=== PATIENT | female | born 2000 | race Caucasian/White ===

== ENCOUNTER 2024-06-08 04:52 | Inpatient (IN) | payer BC ==
[2024-06-08 07:47] VITALS: BMI 34.4
[2024-06-08] MEDS ORDERED: ABX IVPB PRN (07:47)
[2024-06-08] MEDS ORDERED: VANCO IVPB PRN (07:47)
[2024-06-08] MEDS: Vancomycin (BATCH) 2 GM in Premix 1 BAG IVPB SCH (08:00)
[2024-06-08 08:17] LABS: #Basophils Less than 0.03 10x3/uL (0.0-0.2); %Basophils 0.1 % (0.0-1.0); %Eosinophils 0.7 % (0.0-10.0); %Lymphocytes 13.4 % (21.0-51.0); %Monocytes 9.1 % (0.0-10.0); %Neutrophils 76.1 % (42.0-75.0); Hematocrit 38.4 % (36.0-47.0); Hemoglobin 13.2 g/dL (12.0-16.0); Mean Corpuscular HGB CONC 34.4 g/dL (32.0-36.0); Mean Corpuscular Volume 87.3 fL (78.0-98.0); Mean Platelet Volume 9.8 fL (7.4-10.4); Platelet Count 333 10x3/uL (130-400); RBC Distribution Width 11.4 % (11.5-14.5)
[2024-06-08] MEDS: Morphine 4 MG/ML VIAL SLOW IVP SCH (08:31)
[2024-06-08] MEDS ORDERED: Vancomycin 1 GM in Sodium Chloride 0.9% 250 ML 300 ML IVPB SCH (09:00)
[2024-06-08] MEDS: Piperacillin/Tazobactam 3.375 GM in Sodium Chloride 0.9% 100 ML IVPB SCH ×2 (09:18→15:03)
[2024-06-08] MEDS: Famotidine 20 MG TAB PO SCH (09:18)
[2024-06-08] MEDS: Piperacillin/Tazobactam 3.375 GM VIAL ONE (09:28)
[2024-06-08] MEDS ORDERED: Lidocaine 1% PF 5 ML VIAL ONE (11:40)
[2024-06-08] MEDS ORDERED: Rocuronium Bromide 10 MG/ML (10ML VIAL) ONE (11:40)
[2024-06-08] MEDS ORDERED: PROPOFOL 20 ML ONE (11:41)
[2024-06-08] MEDS ORDERED: fentaNYL PF 100 MCG/2 ML SYRINGE ONE (11:41)
[2024-06-08] MEDS ORDERED: Midazolam HCl 2 mg/2 ml Vial ONE (11:41)
[2024-06-08] MEDS ORDERED: Ketamine In 0.9 % NaCl 50 MG/5 ML SYRINGE ONE (11:46)
[2024-06-08] MEDS ORDERED: Ondansetron PF 4 MG/2 ML Vial ONE (12:14)
[2024-06-08] MEDS ORDERED: Dexamethasone 4 mg/ml Vial ONE (12:14)
[2024-06-08] MEDS ORDERED: SUGAMMADEX SODIUM 200 MG/2 ML VIAL ONE (12:14)
[2024-06-08] MEDS ORDERED: Fentanyl 250 MCG/5 ML VIAL ONE (13:30)
[2024-06-08] MEDS ORDERED: Meperidine HCl/PF 25 MG (1 mL) VIAL ONE (13:48)
[2024-06-08] MEDS: Morphine 4 MG/ML VIAL SLOW IVP PRN (15:02)
[2024-06-08] MEDS: Ketorolac Tromethamine 30 MG (1 mL) VIAL IVP PRN (18:16)
[2024-06-08] MEDS: Vancomycin 1 GM in Premix 1 BAG IVPB SCH (20:56)
[2024-06-09] MEDS: Ondansetron ODT 4 MG TAB PO PRN (01:11)
[2024-06-09 05:55] LABS: #Basophils Less than 0.03 10x3/uL (0.0-0.2); %Basophils 0.2 % (0.0-1.0); %Eosinophils 0.4 % (0.0-10.0); %Lymphocytes 16.9 % (21.0-51.0); %Monocytes 9.4 % (0.0-10.0); %Neutrophils 72.3 % (42.0-75.0); Hematocrit 34.4 % (36.0-47.0); Hemoglobin 11.4 g/dL (12.0-16.0); Mean Corpuscular HGB CONC 33.1 g/dL (32.0-36.0); Mean Corpuscular Hemoglobin 30.5 pg (27.0-31.0); Mean Platelet Volume 9.8 fL (7.4-10.4); Platelet Count 339 10x3/uL (130-400); RBC Distribution Width 11.2 % (11.5-14.5); Red Blood Cell (RBC) Count 3.74 mill/uL (4.20-5.40)
[2024-06-09 06:46] LABS: Vancomycin, Random 3.3 ug/mL (See Comment)
[2024-06-09] MEDS: Acetaminophen 325 MG TAB PO PRN (08:36)
[2024-06-09] MEDS: Enoxaparin 40 MG (0.4 mL) SYRINGE SC SCH (08:36)
[2024-06-09] MEDS: FLU (Fluarix Triv) TS24-25(6MOS UP)/PF 45 MCG/0.5 ML Syringe IM ONE (08:37)
[2024-06-09] MEDS ORDERED: Iopamidol 370 76% 100 ML VIAL ONE (09:35)
[2024-06-09] MEDS: Vancomycin (BATCH) 1.5 GM in Premix 1 BAG IVPB SCH (13:51)
[2024-06-09 17:19] LABS: Pregnancy Test - Urine (BHCG) Negative (Negative); Pregu Control Background? CLEAR/WHITE (CLR/WHITE); Pregu Control Bar Appear? YES (CONTROL BAR); Specific Gravity 1.022 (1.002-1.036)
[2024-06-09 17:50] LABS: BHCG - Serum Negative (NEGATIVE); Pregs Control Background? CLEAR/WHITE (CLR/WHITE); Pregs Control Bar Appear? YES (CONTROL BAR)
[2024-06-09] MEDS: Melatonin 3 MG TAB PO PRN (21:43)
[2024-06-09] MEDS: Vancomycin (BATCH) 1.5 GM/300 ML BAG ONE (23:47)
[2024-06-10 04:56] LABS: #Basophils 0.03 10x3/uL (0.0-0.2); %Basophils 0.3 % (0.0-1.0); %Eosinophils 1.4 % (0.0-10.0); %Lymphocytes 20.3 % (21.0-51.0); %Monocytes 10.2 % (0.0-10.0); %Neutrophils 67.2 % (42.0-75.0); Hematocrit 32.5 % (36.0-47.0); Hemoglobin 10.7 g/dL (12.0-16.0); Mean Corpuscular HGB CONC 32.9 g/dL (32.0-36.0); Mean Corpuscular Hemoglobin 30.4 pg (27.0-31.0); Mean Corpuscular Volume 92.3 fL (78.0-98.0); Mean Platelet Volume 9.6 fL (7.4-10.4); Platelet Count 321 10x3/uL (130-400); RBC Distribution Width 11.5 % (11.5-14.5); Red Blood Cell (RBC) Count 3.52 mill/uL (4.20-5.40)
[2024-06-10 05:22] LABS: ALT (SGPT) 16 U/L (8-55); AST (SGOT) 15 U/L (5-34); Albumin 2.8 g/dL (3.5-5.0); Alkaline Phosphatase 56 U/L (40-110); Anion Gap 11 mmol/L (10-20); BUN (Urea Nitrogen) 7 mg/dL (7.0-18.7); Bilirubin, Total 0.4 mg/dL (0.2-1.2); CRP,High Sensitivity (Inhouse) 3.36 mg/dL (< or = 0.5); Calc. Creatinine Clearance 142 mL/min (70-130); Calcium 8.3 mg/dL (7.8-10.44); Carbon Dioxide 25 mmol/L (22-29); Chloride 106 mmol/L (98-107); Estimated GFR 90; Globulin 2.9 g/dL (2.4-3.5); Glucose 108 mg/dL (70-105); Potassium 4.2 mmol/L (3.5-5.1); Protein, Total 5.7 g/dL (6.0-8.3); Sodium 138 mmol/L (136-145); Vancomycin, Random 30.8 ug/mL (See Comment)
[2024-06-10] MEDS: Lorazepam 2 MG/ML VIAL SLOW IVP PRN (10:51)
[2024-06-10] MEDS ORDERED: Magnevist 469MG/ML 20 ML VIAL ONE (10:57)
[2024-06-10] MEDS: traMADol HCl 50 MG TAB PO PRN (12:34)
[2024-06-10 12:53] VITALS: BMI 34.4
[2024-06-10] MEDS: busPIRone HCl 5 MG TAB PO SCH (14:56)
[2024-06-10] MEDS: Vancomycin 1 GM in Premix 1 BAG IVPB SCH (23:11)
[2024-06-11 05:28] LABS: #Basophils 0.03 10x3/uL (0.0-0.2); %Basophils 0.3 % (0.0-1.0); %Eosinophils 1.5 % (0.0-10.0); %Monocytes 8.3 % (0.0-10.0); %Neutrophils 68.4 % (42.0-75.0); Hematocrit 31.4 % (36.0-47.0); Hemoglobin 10.4 g/dL (12.0-16.0); Mean Corpuscular HGB CONC 33.1 g/dL (32.0-36.0); Mean Corpuscular Hemoglobin 30.3 pg (27.0-31.0); Mean Corpuscular Volume 91.5 fL (78.0-98.0); Mean Platelet Volume 9.5 fL (7.4-10.4); Platelet Count 332 10x3/uL (130-400); RBC Distribution Width 11.2 % (11.5-14.5); Red Blood Cell (RBC) Count 3.43 mill/uL (4.20-5.40)
[2024-06-11 05:43] LABS: Vancomycin, Random 19.6 ug/mL (See Comment)
[2024-06-11 05:48] LABS: ALT (SGPT) 13 U/L (8-55); AST (SGOT) 12 U/L (5-34); Albumin 2.6 g/dL (3.5-5.0); Alkaline Phosphatase 48 U/L (40-110); Anion Gap 11 mmol/L (10-20); BUN (Urea Nitrogen) 8 mg/dL (7.0-18.7); Bilirubin, Total 0.5 mg/dL (0.2-1.2); Calc. Creatinine Clearance 155 mL/min (70-130); Calcium 8.5 mg/dL (7.8-10.44); Carbon Dioxide 28 mmol/L (22-29); Chloride 104 mmol/L (98-107); Estimated GFR 100; Glucose 107 mg/dL (70-105); Potassium 3.9 mmol/L (3.5-5.1); Protein, Total 5.6 g/dL (6.0-8.3); Sodium 139 mmol/L (136-145)
[2024-06-11] MEDS: Morphine ER 15 MG TAB PO SCH ×2 (15:06→23:14)
[2024-06-11] MEDS: Bisacodyl 5 MG TAB PO SCH (18:23)
[2024-06-11] MEDS: Polyethylene Glycol 3350 17 GM Packet PO SCH (18:23)
[2024-06-12] MEDS: Vancomycin (BATCH) 1.25 GM in Premix 1 BAG IVPB SCH (02:22)
[2024-06-12 07:53] LABS: #Basophils 0.03 10x3/uL (0.0-0.2); %Basophils 0.3 % (0.0-1.0); %Eosinophils 1.7 % (0.0-10.0); %Lymphocytes 19.1 % (21.0-51.0); %Monocytes 9.5 % (0.0-10.0); %Neutrophils 68.8 % (42.0-75.0); Hematocrit 30.7 % (36.0-47.0); Hemoglobin 10.3 g/dL (12.0-16.0); Mean Corpuscular HGB CONC 33.6 g/dL (32.0-36.0); Mean Corpuscular Hemoglobin 30.2 pg (27.0-31.0); Mean Platelet Volume 9.6 fL (7.4-10.4); Platelet Count 317 10x3/uL (130-400); RBC Distribution Width 11.1 % (11.5-14.5); Red Blood Cell (RBC) Count 3.41 mill/uL (4.20-5.40)
[2024-06-12 08:11] LABS: ALT (SGPT) 18 U/L (8-55); AST (SGOT) 20 U/L (5-34); Albumin 2.6 g/dL (3.5-5.0); Alkaline Phosphatase 74 U/L (40-110); Anion Gap 14 mmol/L (10-20); BUN (Urea Nitrogen) 13 mg/dL (7.0-18.7); Bilirubin, Total 0.6 mg/dL (0.2-1.2); Calc. Creatinine Clearance 150 mL/min (70-130); Calcium 8.9 mg/dL (7.8-10.44); Carbon Dioxide 26 mmol/L (22-29); Chloride 102 mmol/L (98-107); Estimated GFR 96; Globulin 3.3 g/dL (2.4-3.5); Glucose 92 mg/dL (70-105); Potassium 3.9 mmol/L (3.5-5.1); Protein, Total 5.9 g/dL (6.0-8.3); Sodium 138 mmol/L (136-145)
[2024-06-12] MEDS: Senokot S 8.6-50 MG TAB PO SCH ×2 (15:09→20:44)
[2024-06-12] MEDS: Morphine ER 15 MG TAB PO SCH ×2 (15:09→20:45)
[2024-06-12] MEDS ORDERED: hydrOXYzine 25 MG TAB PO PRN (15:33)
[2024-06-12] MEDS: HYDROcodone/Acetaminophen 10/325 mg Tablet PO PRN (17:56)
[2024-06-12] MEDS: Polyethylene Glycol 3350 17 GM Packet PO SCH (18:42)
[2024-06-12] MEDS: Bisacodyl 5 MG TAB PO SCH (18:42)
[2024-06-12] MEDS: Prochlorperazine Maleate 5 MG TAB PO SCH (20:45)
[2024-06-13] MEDS: Vancomycin (BATCH) 1.25 GM in Premix 1 BAG IVPB SCH (02:07)
[2024-06-13] MEDS: Bisacodyl 10 MG SUPP PR PRN (05:31)
[2024-06-13] MEDS: Naloxegol 12.5 MG TAB PO SCH (06:37)
[2024-06-13] MEDS: Fleet Saline Enema 133 ML BOT PR SCH (09:10)
[2024-06-13] MEDS: Methocarbamol 500 MG TAB PO SCH (12:17)
[2024-06-13 12:30] VITALS: BP 118/73; TEMP 98.1
== END 2024-06-13 12:39 | disposition home or self-care (01) | DRG 543 ==
LOC: SURG B 05:47 → OBSVTOIN 06-10 09:19
PROVIDERS: ADMIT Family Medicine; ATTEND Internal Medicine
PROC: 0J990ZZ Drainage of Buttock Subcutaneous Tissue and Fascia, Open Approach (ICD-10-PCS; principal; 2024-06-08)
PROC: 0JB90ZX Excision of Buttock Subcutaneous Tissue and Fascia, Open Approach, Diagnostic (ICD-10-PCS; 2024-06-08)
DX: C49.9 Malignant neoplasm of connective and soft tissue, unspecified (principal); C78.01 Secondary malignant neoplasm of right lung; L02.31 Cutaneous abscess of buttock; C78.02 Secondary malignant neoplasm of left lung; Z83.3 Family history of diabetes mellitus; F41.9 Anxiety disorder, unspecified
CPT/HCPCS: 36415; 70553; 71260; 74018; 74177; 76376; 80053; 80202; 81025; 82565; 84703; 85025; 86141; 87070; 87205; 88184; 88304; 88305; 88307; 88331; 88341; 88342; 96372; 96374; 96375; 96376; 97139; G0378; J1100; J1650; J1885; J2060; J2175; J2250; J2272; J2405; J2543; J2704; J3010; J3370; J3370-JW; J3490; Q0162; Q0164; Q9967